=== PATIENT | female | born 1990 | race Hispanic/Latino ===

== ENCOUNTER 2017-10-08 09:49 | Emergency (ER) | payer BC ==
[2017-10-08 09:49] VITALS: BMI 36.1
[2017-10-08 10:08] VITALS: TEMP 99.2
[2017-10-08] MEDS ORDERED: Sodium Chloride 0.9% 1,000 ML IV STA (10:13)
--- NOTE | 2017-10-08 10:23 | ED PDOC ---
Arrival/HPI - General Chief Complaint: Weakness/Neurological Deficit Time Seen by Provider: 10/08/17 10:11 Historian: Patient - History of Present Illness Narrative History of Present Illness (Text): 10/08/17 10:13 27 y/o female, no significant pmh, nkda, approx. 20 weeks ?, Rh-?, c/o lower leg and abdominal pain x 1 week. Pt. stated that her obgyn is from [facility] with DR. Bains, stated that she has been exeriencing lower extremity pain bilaterally for the past 1 week, associated with the lower pelvic cramp, no vaginal bleeding or spotting, no night sweat, no dizziness, no rash, no numbness or tingling, no other medical or psychological complaints. Past Medical History - Provider Review Nursing Documentation Reviewed: Yes - Infectious Disease Hx of Infectious Diseases: None - Tetanus Immunization Tetanus Immunization: Unknown - Past Medical History Past Medical History: No Previous - Cardiac Hx Cardiac Disorders: No Hx Pacemaker: No - Pulmonary Hx Respiratory Disorders: No - Neurological Hx Paralysis: No - HEENT Hx HEENT Disorder: No - Renal Hx Renal Disorder: No - Endocrine/Metabolic Hx Endocrine Disorders: No - Hematological/Oncological Hx Blood Disorders: No - Integumentary Hx Dermatological Disorder: No - Musculoskeletal/Rheumatological Hx Musculoskeletal Disorders: No - Gastrointestinal Hx Gastrointestinal Disorders: No - Genitourinary/Gynecological Hx Genitourinary Disorders: Yes (H/O VAGINAL BLEED,OVARIAN CYST) - Psychiatric Hx Depression: No Hx Substance Use: No - Past Surgical History Past Surgical History: No Previous - Surgical History Other/Comment: R/T OVARIAN CYST - Anesthesia Hx Anesthesia Reactions: Yes Hx Malignant Hyperthermia: No - Suicidal Assessment Feels Threatened In Home Enviroment: No Family/Social History - Physician Review Nursing Documentation Reviewed: Yes Family/Social History: Unknown Family HX Smoking Status: Never Smoked Hx Alcohol Use: Yes (SOCIALLY) Hx Substance Use: No Hx Substance Use Treatment: No Allergies/Home Meds Allergies/Adverse Reactions: Allergies No Known Allergies Allergy (Verified 10/08/17 10:02) Home Medications: Home Meds Medication Instructions Recorded Confirmed Multivit/Folic Acid/I 1 tab PO DAILY 10/08/17 10/08/17 [] Review of Systems - Review of Systems Constitutional: absent: Fatigue, Fevers Eyes: absent: Vision Changes ENT: absent: Hearing Changes Respiratory: absent: SOB, Cough Cardiovascular: absent: Chest Pain Gastrointestinal: Abdominal Pain. absent: Nausea, Vomiting Musculoskeletal: Myalgias. absent: Arthralgias, Back Pain, Neck Pain, Joint Swelling Skin: absent: Rash, Pruritis Neurological: absent: Headache Endocrine: absent: Diaphoresis Psychiatric: absent: Anxiety, Depression, Suicidal Ideation Physical Exam Vital Signs Reviewed: Yes Vital Signs Temp Pulse Resp BP Pulse Ox 10/08/17 12:06 74 18 108/74 98 10/08/17 11:12 79 18 110/78 98 10/08/17 10:03 99.2 F 88 16 108/70 98 Temperature: Afebrile Blood Pressure: Normal Pulse: Regular Respiratory Rate: Normal Appearance: Positive for: Well-Appearing, Non-Toxic, Comfortable Pain Distress: Mild Mental Status: Positive for: Alert and Oriented X 3 - Systems Exam Head: Present: Atraumatic, Normocephalic Pupils: Present: PERRL Extroacular Muscles: Present: EOMI Conjunctiva: Present: Normal Mouth: Present: Moist Mucous Membranes Neck: Present: Normal Range of Motion Respiratory/Chest: Present: Clear to Auscultation, Good Air Exchange. No: Respiratory Distress, Accessory Muscle Use, Wheezes, Decreased Breath Sounds, Rales, Retracting, Rhonchi, Tachypneic, Tender to Palpation Cardiovascular: Present: Regular Rate and Rhythm, Normal S1, S2. No: Murmurs Abdomen: Present: Normal Bowel Sounds. 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 No: Vaginal Discharge, Vaginal Bleeding, Vaginal Lesions, Adenexal Tenderness, Adenexal Mass, Cervical Motion Tendernes, Odor Back: Present: Normal Inspection Upper Extremity: Present: Normal Inspection. No: Cyanosis, Edema Lower Extremity: Present: Normal Inspection. No: Edema Neurological: Present: GCS=15, CN II-XII Intact, Speech Normal, Motor Func Grossly Intact, Gait Normal, Memory Normal Skin: Present: Warm, Dry, Normal Color. No: Rashes Psychiatric: Present: Alert, Oriented x 3, Normal Insight, Normal Concentration Medical Decision Making ED Course and Treatment: 10/08/17 10:25 -labs/ua/type and screen -bilateral venuous doppler and pelvic sonogram -IVF/tylenol -observe and reassess 10/08/17 15:02 -Pain resolved, feeling much better. -Bilateral lower extremities venuous doppler: as per preliminary report, no acute dvt -Pelvic sonogram show: Single live intrauterine fetus in cephalic presentation with mean gestational age of 18 weeks and 6 days. Placenta is posterior. The estimated date of delivery by ultrasound is 03/05/2010. -Labs are non-significant except beta hcg 30928 with ua show +UTI, macrobid ordered. -Blood type is A- -Discharge home with macrobid, tylenol, stay hydrated, bed rest, follow up with your own pmd and obgyn within 2 days, return to the ER for any new or worsening signs or symptoms. - Lab Interpretations Lab Results: 10/08/17 10:55 10/08/17 10:55 Lab Results 10/08/17 10:55: Blood Type A NEGATIVE, Antibody Screen Positive, Antibody Identification Anti D, BBK History Checked Patient has bt 10/08/17 10:55: Beta HCG, Quant 70280.00 H 10/08/17 10:55: Sodium 135, Potassium 3.8, Chloride 103, Carbon Dioxide 26, Anion Gap 10, BUN 8, Creatinine 0.6 L, Est GFR ( Amer) > 60, Est GFR (Non -Af Amer) > 60, Random Glucose 74, Calcium 9.0, Total Bilirubin 0.5, AST 27, ALT 40, Alkaline Phosphatase 50, Total Protein 6.6, Albumin 3.6, Globulin 3.0, Albumin/Globulin Ratio 1.2 10/08/17 10:55: Urine Color Yellow, Urine Appearance Clear, Urine pH 7.0, Ur Specific [place] 1.015, Urine Protein Negative, Urine Glucose (UA) Negative, Urine Ketones Negative, Urine Blood Negative, Urine Nitrate Negative, Urine Bilirubin Negative, Urine Urobilinogen 0.2, Ur Leukocyte Esterase Small H, Urine RBC 1 - 3, Urine WBC Negative, Ur Epithelial Cells Many, Urine Bacteria Few 10/08/17 10:55: WBC 10.7 D, RBC 4.03, Hgb 11.6 L, Hct 35.0 L, MCV 86.8, MCH 28.8, MCHC 33.1, RDW 13.9, Plt Count 174, MPV 12.2 H, Gran % 71.9 H, Lymph % ( Auto) 21.3 L, Lyman % (Auto) 6.0, Eos % (Auto) 0.7 L, Baso % (Auto) 0.1, Gran # 7.68 H, Lymph # 2.3, Lyman # 0.6, Eos # 0.1, Baso # 0.01 Interpretation: Abnormal lab values (+UTI) - RAD Interpretation Radiology Orders: 10/08/17 10:12 AGE [US] Routine 10/08/17 10:14 DUPLEX LOWER EXTRM VEIN BILAT [US] Stat Bilateral lower extremities venuous doppler: as per preliminary report, no acute dvt ------- Pelvic sonogram: PROCEDURE: OB Pelvic Ultrasound HISTORY: lower pelvic cramp, COMPARISON: None available. FINDINGS: UTERUS: Gestational sac: Single intrauterine fetus in cephalic presentation. Heart rate: 130 bpm. BPD: 4.20 cm corresponding to 18 weeks and 5 days of gestational age. HC: 16.02 cm corresponding to 18 weeks and 6 days of gestational age. AC: 13.48 cm corresponding to 19 weeks and 0 days of gestational age. FL: 2.89 cm corresponding to 18 weeks and 6 days of gestational age. age (Ultrasound estimated): 18 weeks and 6 days Brenda-gestational hemorrhage: None. Date of delivery (Ultrasound estimated) : 03/05/2018 Placenta is posterior. CERVIX: Long and closed. No cervical abnormality seen. RIGHT OVARY: Not visualized. LEFT OVARY: Not visualized. FREE FLUID: None. OTHER FINDINGS: None. IMPRESSION: Single live intrauterine fetus in cephalic presentation with mean gestational age of 18 weeks and 6 days. Placenta is posterior. The estimated date of delivery by ultrasound is 03/05/2010. Please note this is a limited OB ultrasound performed in the emergency room. Follow-up dedicated anatomic survey is recommended. International Relations Professor: Radiologist - Medication Orders Current Medication Orders: Discontinued Medications Acetaminophen (Tylenol 325mg Tab) 650 mg PO STAT STA Stop: 10/08/17 10:13 Last Admin: 10/08/17 11:00 Dose: 650 mg MAR Pain/Vitals Document 10/08/17 11:00 DIAZGareth (Rec: 10/08/17 11:01 MANNY [id number]) Pain Reassessment Is This A Pain ReAssessment? No Sleep Is patient sleeping during reassessment? No Presence of Pain Presence of Pain Yes Sodium Chloride (Sodium Chloride 0.9%) 1,000 mls @ 999 mls/hr IV .Q1H1M STA Stop: 10/08/17 11:13 Last Admin: 10/08/17 10:35 Dose: 999 mls/hr eMAR Start Stop Document 10/08/17 10:35 DIAZGareth (Rec: 10/08/17 11:02 MANNY [id number]) Intravenous Solution Start Date 10/08/17 Start Time 10:35 End Date 10/08/17 End time 11:35 Total Infusion Time 60 Nitrofurantoin Macrocrystals (Macrobid) 100 mg PO STAT STA Stop: 10/08/17 12:28 Last Admin: 10/08/17 13:15 Dose: 100 mg - PA / SAFETY AND HEALTH CONSULTANT / Resident Statement / has reviewed & agrees with the documentation as recorded. Disposition/Present on Arrival - Present on Arrival Any Indicators Present on Arrival: No History of DVT/PE: No History of Uncontrolled Diabetes: No Urinary Catheter: No History of Decub. Ulcer: No History Surgical Site Infection Following: None - Disposition Have Diagnosis and Disposition been Completed?: Yes Diagnosis: UTI (urinary tract infection), Pelvic pain, Leg pain Disposition: HOME/ ROUTINE Disposition Time: 12:29 Patient Plan: Discharge Patient Problems: Current Active Problems Problem Status Onset UTI (urinary tract infection) Acute Pelvic pain Acute Leg pain Acute Condition: IMPROVED Additional Instructions: -Discharge home with macrobid, tylenol, stay hydrated, bed rest, follow up with your own pmd and obgyn within 2 days, return to the ER for any new or worsening signs or symptoms. Prescriptions: Acetaminophen [Tylenol 325mg tab] 2 tab PO QID PRN #35 tab PRN Reason: Other Nitrofurantoin Macrocrystals [Macrobid] 100 mg PO BID #14 cap Referrals: Katya Ribera, [Primary Care Provider] - Follow up with primary Sonal Bains MD [Staff Provider] - [facility] up with primary [facility] - Follow up with primary Forms: WORK NOTE
[2017-10-08 11:16] LABS: BASO # 0.01 K/mm3 (0.0-2.0); BASO % 0.1 % (0.0-3.0); EOS # 0.1 (0.0-0.7); EOS % 0.7 % (1.5-5.0); GRAN # 7.68 (1.4-6.5); GRAN % 71.9 % (50.0-68.0); LYMPH # 2.3 (1.2-3.4); LYMPH % 21.3 % (22.0-35.0); MEAN CELL VOLUME 86.8 fl (80.0-105.0); MEAN CORPUSCULAR HEMOGLOBIN 28.8 pg (25.0-35.0); MEAN CORPUSCULAR HGB CONC 33.1 g/dl (31.0-37.0); MEAN PLATELET VOLUME 12.2 fl (7.0-11.0); MONO # 0.6 (0.1-0.6); RED CELL DISTRIBUTION WIDTH 13.9 % (11.5-14.5); WHITE BLOOD COUNT 10.7 10^3/ul (4.5-11.0)
[2017-10-08 11:20] LABS: URINE BILIRUBIN NEGATIVE (NEGATIVE); URINE BLOOD NEGATIVE (NEGATIVE); URINE GLUCOSE (UA) NEGATIVE (NEGATIVE); URINE KETONE NEGATIVE (NEGATIVE); URINE LEUKOCYTE ESTERASE SMALL Leu/uL (NEGATIVE); URINE PROTEIN NEGATIVE mg/dL (<30 mg/dL); URINE UROBILINOGEN 0.2 E.U./dL (<1 E.U./dL)
[2017-10-08 11:21] VITALS: RESP 18
[2017-10-08 11:23] LABS: ALB/GLOB RATIO 1.2 (1.1-1.8); ALKALINE PHOSPHATASE 50 U/L (38-126); ALT/SGPT 40 U/L (7-56); AST/SGOT 27 U/L (14-36); BILIRUBIN,TOTAL 0.5 mg/dL (0.2-1.3); BLOOD UREA NITROGEN 8 mg/dL (7-21); CARBON DIOXIDE 26 mmol/L (21-33); CHLORIDE 103 mmol/L (98-107); GFR AFRICAN-AMERICAN > 60; GLUCOSE,RANDOM 74 mg/dL (70-110); POTASSIUM 3.8 mmol/L (3.6-5.0); SODIUM 135 mmol/L (132-148); TOTAL PROTEIN 6.6 g/dL (5.8-8.3)
[2017-10-08 11:25] LABS: URINE APPEARANCE CLEAR (CLEAR); URINE COLOR YELLOW (YELLOW)
[2017-10-08 11:27] LABS: URINE EPITHELIAL CELLS MANY /hpf (0-5); URINE WBC NEGATIVE /hpf (0-6)
[2017-10-08 11:28] LABS: URINE BACTERIA FEW (NEG)
--- NOTE | 2017-10-08 14:13 | US ---
PROCEDURE: OB Pelvic Ultrasound HISTORY: lower pelvic cramp, COMPARISON: None available. FINDINGS: UTERUS: Gestational sac: Single intrauterine fetus in cephalic presentation. Heart rate: 130 bpm. BPD: 4.20 cm corresponding to 18 weeks and 5 days of gestational age. HC: 16.02 cm corresponding to 18 weeks and 6 days of gestational age. AC: 13.48 cm corresponding to 19 weeks and 0 days of gestational age. FL: 2.89 cm corresponding to 18 weeks and 6 days of gestational age. age (Ultrasound estimated): 18 weeks and 6 days Brenda-gestational hemorrhage: None. Date of delivery (Ultrasound estimated) : 03/05/2018 Placenta is posterior. CERVIX: Long and closed. No cervical abnormality seen. RIGHT OVARY: Not visualized. LEFT OVARY: Not visualized. FREE FLUID: None. OTHER FINDINGS: None. IMPRESSION: Single live intrauterine fetus in cephalic presentation with mean gestational age of 18 weeks and 6 days. Placenta is posterior. The estimated date of delivery by ultrasound is 03/05/2010. Please note this is a limited OB ultrasound performed in the emergency room. Follow-up dedicated anatomic survey is recommended.
[2017-10-08 15:14] VITALS: BP 112/75; PULSE 69; O2SAT 100
--- NOTE | 2017-10-08 15:31 | US ---
HISTORY: Leg pain and swelling. Evaluate for DVT PHYSICIAN(S): Kodak Robertson MD. TECHNIQUE: Duplex sonography and color-flow Doppler with graded compression were used to evaluate the deep venous systems of both lower extremities. FINDINGS: The visualized deep venous systems of both lower extremities are sonographically normal and compressible. Normal wave forms and augmentation are seen. There is no sonographic evidence for deep venous thrombosis in the visualized segments of both lower extremities. IMPRESSION: No sonographic evidence for deep venous thrombosis in the visualized segments of both lower extremities.
== END 2017-10-08 15:20 | disposition home or self-care (01) ==
LOC: ED 09:49
DX: O23.32 Infections of other parts of urinary tract in pregnancy, second trimester (principal); Z3A.18 18 weeks gestation of pregnancy; R10.2 Pelvic and perineal pain; M79.662 Pain in left lower leg; M79.661 Pain in right lower leg
CPT/HCPCS: 76815; 80053; 81001; 84702; 85025; 86850; 86870; 86900; 87086; 93970; 96360; 99285; J7040